=== PATIENT | female | born 1935 | race African-American/Black ===

== ENCOUNTER 2024-08-24 07:12 | Emergency (ER) | payer MEDICARE, OTHER ==
[~2024-08-24] VITALS: Ht 165.1 cm; Wt 68.0 kg
[2024-08-24 07:30] VITALS: O2SAT 98
[2024-08-24] MEDS ORDERED: ACET-2708 MT (09:44)
[2024-08-24 13:40] VITALS: BP 122/59; PULSE 62; RESP 16; TEMP 36.89184; O2SAT 99
== END 2024-08-24 13:40 | disposition home or self-care (01) ==
LOC: ER 07:39
DX: M25.511 Pain in right shoulder (principal); I50.9 Heart failure, unspecified; R51.9 Headache, unspecified; Z88.6 Allergy status to analgesic agent; W18.30XA Fall on same level, unspecified, initial encounter; Y93.89 Activity, other specified; Y92.89 Other specified places as the place of occurrence of the external cause; Y99.8 Other external cause status
CPT/HCPCS: 71045; 73030; 99284